=== PATIENT | male | born 1945 | race Caucasian/White ===

== ENCOUNTER 2016-08-14 09:15 | Emergency (ER) | payer MEDICARE, BC ==
[2016-08-14 09:59] LABS: CHLORIDE,CL 103 mmol/L (98-107); SODIUM,NA 137 mmol/L (136-145)
[2016-08-14] MEDS ORDERED: Sodium Chloride 0.9% 1,000 ML IV SCH (10:45)
--- NOTE | 2016-08-14 10:45 | EDM.PDOC ---
ED HPI GENERAL MEDICAL PROBLEM - General Chief Complaint: General Stated Complaint: Dizziness Time Seen by Provider: 08/14/16 09:55 Source of Information: Reports: Patient History Limitations: Reports: No Limitations - History of Present Illness INITIAL COMMENTS - FREE TEXT/NARRATIVE: The patient presents to the ER with compliant of lightheadedness and weakness that began at about 8 am this morning. He denies chest pain, shortness of breath , nausea or vomiting, diarrhea, hematochezia, melena, visual changes, facial droop, speech difficulty, and focal weakness or numbness or paresthesias. He denies other symptoms or complaints. - Related Data Allergies Allergy/AdvReac Type Severity Reaction Status Date / Time No Known Allergies Allergy Verified 08/14/16 09:25 Home Meds: Home Meds Acetaminophen [Tylenol Extra Strength] 1,000 mg PO Q4HR PRN 03/06/16 [History] Escitalopram Oxalate [Lexapro] 10 mg PO QAM 03/06/16 [History] Folic Acid 1 mg PO QAM 03/06/16 [History] Lisinopril 10 mg PO QAM 03/06/16 [History] Sildenafil [Viagra] 100 mg PO ASDIRECTED 03/06/16 [History] atorvaSTATin Calcium [Atorvastatin Calcium] 10 mg PO QAM 03/06/16 [History] buPROPion [Wellbutrin SR] 150 mg PO QAM 03/06/16 [History] Cefadroxil 500 mg PO BID 08/14/16 [History] Past Medical History Cardiovascular History: Reports: High Cholesterol, Hypertension Musculoskeletal History: Reports: Back Pain, Chronic Other Musculoskeletal History: Back Surgery 02/03/16 and 02/10/16 Psychiatric History: Reports: Depression - Past Surgical History Musculoskeletal Surgical History: Reports: Other (See Below) Other Musculoskeletal Surgeries/Procedures:: Multiple back surgeries for lower lumbar fusion and subsequent surgeries for infection. Currently on cefprodroxil for 1 year s/p postop "staph" infection. States it was not MRSA. Social & Family History - Tobacco Use Smoking Status *Q: Current Every Day Smoker Years of Tobacco use: 25 Packs/Tins Daily: 1 Used Tobacco, but Quit: Yes Month Tobacco Last Used: February Second Hand Smoke Exposure: No - Caffeine Use Caffeine Use: Reports: Coffee - Alcohol Use Days Per Week of Alcohol Use: 7 Number of Drinks Per Day: 2 Total Drinks Per Week: 14 Date of Last Drink: 08/13/16 - Recreational Drug Use Recreational Drug Use: No ED ROS GENERAL - Review of Systems Review Of Systems: ROS reveals no pertinent complaints other than HPI. ED EXAM, GENERAL - Physical Exam Exam: See Below Exam Limited By: No Limitations General Appearance: Alert, WD/WN, No Apparent Distress Eye Exam: Bilateral Eye: EOMI, Normal Fundi, Normal Inspection, PERRL Ears: Normal External Exam, Normal Canal, Hearing Grossly Normal, Normal TMs Ear Exam: Bilateral Ear: Auricle Normal, Canal Normal, TM normal Nose: Normal Inspection, Normal Mucosa, No Blood Throat/Mouth: Normal Inspection, Normal Lips, Normal Teeth, Normal Gums, Normal Oropharynx, Normal Voice, No Airway Compromise Head: Atraumatic, Normocephalic Neck: Normal Inspection, Supple, Non-Tender, Full Range of Motion. No: Lymphadenopathy (L), Lymphadenopathy (R), Tender Lateral, Tender Midline Respiratory/Chest: No Respiratory Distress, Lungs Clear, Normal Breath Sounds, No Accessory Muscle Use, Chest Non-Tender Cardiovascular: Normal Peripheral Pulses, Regular Rate, Rhythm, No Edema, No Gallop, No Murmur, No Rub Peripheral Pulses: 2+: Radial (L), Radial (R), Dorsalis Pedis (L), Dorsalis Pedis (R) GI/Abdominal: Normal Bowel Sounds, Soft, Non-Tender, No Organomegaly, No Distention Back Exam: Normal Inspection, Full Range of Motion. No: CVA Tenderness (L), CVA Tenderness (R), Paraspinal Tenderness, Vertebral Tenderness Extremities: Normal Inspection, Normal Range of Motion, Non-Tender, No Pedal Edema, Normal Capillary Refill Neurological: Alert, Oriented, CN II-XII Intact, Normal Cognition, Normal Gait, Normal Reflexes, No Motor/Sensory Deficits Psychiatric: Normal Affect, Normal Mood Skin Exam: Warm, Dry, Intact, Normal Color, No Rash Lymphatic: No Adenopathy Course - Vital Signs Last Recorded V/S: Last Vital Signs Temp 36.8 C 08/14/16 09:34 Pulse 65 08/14/16 14:38 Resp 18 08/14/16 14:38 BP 146/78 H 08/14/16 14:38 Pulse Ox 99 08/14/16 14:38 Orthostatic Blood Pressure [ 146/78 Standing] Orthostatic Blood Pressure [ 140/83 Sitting] Orthostatic Blood Pressure [ 145/70 Supine] - Orders/Labs/Meds Orders: Active Orders 24 hr Category Date Time Status EKG Documentation Completion [RC] ASDIRECTED Care 08/14/16 09:23 Active EKG Documentation Completion [RC] STAT Care 08/14/16 09:23 Active Chest 1V Frontal [CR] Stat Exams 08/14/16 09:23 Taken Sodium Chloride 0.9% [Normal Saline] 1,000 ml Med 08/14/16 10:45 Active IV ASDIRECTED Medication Orders Sodium Chloride (Normal Saline) 1,000 mls @ 150 mls/hr IV ASDIRECTED ABHIJIT Last Admin: 08/14/16 10:47 Dose: 150 mls/hr Labs: Laboratory Tests 08/14/16 08/14/16 08/14/16 Range/Units 09:22 09:22 10:15 WBC 5.8 (4.0-10.2) K/uL RBC 5.05 (4.33-5.41) M/uL Hgb 14.4 D (13.1-16.8) g/dL Hct 43.3 (39.0-49.0) % MCV 85.7 D (84.0-98.0) fL MCH 28.5 (28.2-33.3) pg MCHC 33.3 (31.7-36.0) g/dL RDW 16.7 H (11.2-14.1) % Plt Count 215 (150-350) K/uL Neut % (Auto) 56.2 (45.0-80.0) % Lymph % (Auto) 27.6 (10.0-50.0) % [place] % (Auto) 10.2 (2.0-14.0) % Eos % (Auto) 5.5 H (0.0-5.0) % Baso % (Auto) 0.5 (0.0-2.0) % Neut # (Auto) 3.25 (1.40-7.00) K/uL Lymph # (Auto) 1.60 (0.50-3.50) K/uL [place] # (Auto) 0.59 (0.00-1.00) K/uL Eos # (Auto) 0.32 (0.00-0.50) K/uL Baso # (Auto) 0.03 (0.00-0.20) K/uL Sodium 137 (136-145) mmol/L Potassium 4.2 (3.5-5.1) mmol/L Chloride 103 (98-107) mmol/L Carbon Dioxide 28.4 (21.0-32.0) mmol/L BUN 18 (7-18) mg/dL Creatinine 0.99 (0.51-1.17) mg/dL Est Cr Clr Drug Dosing 71.84 mL/min Estimated GFR (MDRD) > 60 mL/min Glucose 133 H (74-106) mg/dL Calcium 9.0 (8.5-10.1) mg/dL Total Bilirubin 0.3 (0.2-1.0) mg/dL AST 22 (15-37) U/L ALT 33 (12-78) U/L Alkaline Phosphatase 86 (46-116) IU/L Creatine Kinase 472 H (26-308) U/L Creatine Kinase Index 0.6 (0.0-2.5) % CK-MB (CK-2) 2.70 (0.00-3.60) ng/mL Troponin I 0.000 (0.000-0.056) ng/mL C-Reactive Protein 0.1 (<=0.9) mg/dL Dej-N-Gmakmmvtazi Pept 14 (0-125) pg/mL Total Protein 7.6 (6.4-8.2) g/dL Albumin 3.7 (3.4-5.0) g/dL Specimen Type Urinvoid Urine Color Yellow Urine Appearance Clear Urine pH 6.5 (5.0-9.0) Ur Specific [place] 1.020 (1.005-1.030) Urine Protein Negative (NEGATIVE) mg/dL Urine Glucose (UA) Negative (NEGATIVE) mg/dL Urine Ketones Negative (NEGATIVE) mg/dL Urine Occult Blood Small H (NEGATIVE) Urine Nitrite Negative (NEGATIVE) Urine Bilirubin Negative (NEGATIVE) Urine Urobilinogen 0.2 (0.2-1.0) E.U./dL Ur Leukocyte Esterase Negative (NEGATIVE) Urine RBC 5-10 H /HPF Urine WBC 0-5 /HPF Ur Epithelial Cells Rare /LPF Urine Bacteria Rare (NONE TO FEW) /HPF 08/14/16 Range/Units 13:30 WBC (4.0-10.2) K/uL RBC (4.33-5.41) M/uL Hgb (13.1-16.8) g/dL Hct (39.0-49.0) % MCV (84.0-98.0) fL MCH (28.2-33.3) pg MCHC (31.7-36.0) g/dL RDW (11.2-14.1) % Plt Count (150-350) K/uL Neut % (Auto) (45.0-80.0) % Lymph % (Auto) (10.0-50.0) % [place] % (Auto) (2.0-14.0) % Eos % (Auto) (0.0-5.0) % Baso % (Auto) (0.0-2.0) % Neut # (Auto) (1.40-7.00) K/uL Lymph # (Auto) (0.50-3.50) K/uL [place] # (Auto) (0.00-1.00) K/uL Eos # (Auto) (0.00-0.50) K/uL Baso # (Auto) (0.00-0.20) K/uL Sodium (136-145) mmol/L Potassium (3.5-5.1) mmol/L Chloride (98-107) mmol/L Carbon Dioxide (21.0-32.0) mmol/L BUN (7-18) mg/dL Creatinine (0.51-1.17) mg/dL Est Cr Clr Drug Dosing mL/min Estimated GFR (MDRD) mL/min Glucose (74-106) mg/dL Calcium (8.5-10.1) mg/dL Total Bilirubin (0.2-1.0) mg/dL AST (15-37) U/L ALT (12-78) U/L Alkaline Phosphatase (46-116) IU/L Creatine Kinase 421 H (26-308) U/L Creatine Kinase Index 0.5 (0.0-2.5) % CK-MB (CK-2) 2.20 (0.00-3.60) ng/mL Troponin I 0.000 (0.000-0.056) ng/mL C-Reactive Protein (<=0.9) mg/dL Zdv-M-Bllyabmenti Pept (0-125) pg/mL Total Protein (6.4-8.2) g/dL Albumin (3.4-5.0) g/dL Specimen Type Urine Color Urine Appearance Urine pH (5.0-9.0) Ur Specific [place] (1.005-1.030) Urine Protein (NEGATIVE) mg/dL Urine Glucose (UA) (NEGATIVE) mg/dL Urine Ketones (NEGATIVE) mg/dL Urine Occult Blood (NEGATIVE) Urine Nitrite (NEGATIVE) Urine Bilirubin (NEGATIVE) Urine Urobilinogen (0.2-1.0) E.U./dL Ur Leukocyte Esterase (NEGATIVE) Urine RBC /HPF Urine WBC /HPF Ur Epithelial Cells /LPF Urine Bacteria (NONE TO FEW) /HPF Meds: Medications Generic Name Dose Route Start Last Admin Trade Name Freq PRN Reason Stop Dose Admin Sodium Chloride 1,000 mls @ 150 mls/hr 08/14/16 10:45 08/14/16 10:47 Normal Saline IV 150 mls/hr ASDIRECTED ABHIJIT Administration Departure - Departure Time of Disposition: 15:00 Disposition: Home, Self-Care 01 Clinical Impression: Lightheadedness, Episode of generalized weakness - Discharge Information Instructions: Near-Syncope Referrals: PCP,Unknown [Primary Care Provider] - Forms: ED Department Discharge Additional Instructions: 1. Ruled out acute NM and stroke. EKG showed NSR with Q waves in III and J point elevation in V1. No ST elevation. No previous EKG for comparison. 2. NS at 150 mL/hour in ER. 3. Patient notes improvement in lightheadedness and generalized weakness and able to ambulate in hallways without assistance with no complaints. 4. Recommended to begin low dose 81 mg enteric coated aspirin regimen daily for cardiac and stroke prophylaxis. 5. Follow up with PCP this week, recommend cardiac risk stratification and 24 hour Holter monitor. Recommend fasting lipid panel and consideration for cardiac stress testing. 6. Return to ER with refractory chest pain, shortness of breath, visual changes , facial droop, speech difficulty, focal weakness or numbness or tingling, mental status changes, or other emergent concerns. - My Orders Last 24 Hours: My Active Orders 08/14/16 09:23 EKG Documentation Completion [RC] ASDIRECTED EKG Documentation Completion [RC] STAT Chest 1V Frontal [CR] Stat 08/14/16 10:45 Sodium Chloride 0.9% [Normal Saline] 1,000 ml IV ASDIRECTED - Assessment/Plan Last 24 Hours: My Active Orders 08/14/16 09:23 EKG Documentation Completion [RC] ASDIRECTED EKG Documentation Completion [RC] STAT Chest 1V Frontal [CR] Stat 08/14/16 10:45 Sodium Chloride 0.9% [Normal Saline] 1,000 ml IV ASDIRECTED Assessment:: Episodic lightheadedness and generalized weakness. Plan: 1. Ruled out acute NM and stroke. EKG showed NSR with Q waves in III and J point elevation in V1. No ST elevation. No previous EKG for comparison. 2. NS at 150 mL/hour in ER. 3. Patient notes improvement in lightheadedness and generalized weakness and able to ambulate in hallways without assistance with no complaints. 4. Recommended to begin low dose 81 mg enteric coated aspirin regimen daily for cardiac and stroke prophylaxis. 5. Follow up with PCP this week, recommend cardiac risk stratification and 24 hour Holter monitor. Recommend fasting lipid panel and consideration for cardiac stress testing. 6. Return to ER with refractory chest pain, shortness of breath, visual changes , facial droop, speech difficulty, focal weakness or numbness or tingling, mental status changes, or other emergent concerns.
[2016-08-14 14:38] VITALS: BP 146/78
== END 2016-08-14 15:10 | disposition home or self-care (01) ==
LOC: LL.ED 09:15
DX: R53.1 Weakness (principal); R42 Dizziness and giddiness; E78.00 Pure hypercholesterolemia, unspecified; I10 Essential (primary) hypertension; F32.9 Major depressive disorder, single episode, unspecified; F17.210 Nicotine dependence, cigarettes, uncomplicated
CPT/HCPCS: 36415; 71010; 80053; 81001; 82550; 82553; 83880; 84484; 85025; 86140; 93005; 96360; 96361; 99284; J7030; 99282

== ENCOUNTER 2017-01-27 07:00 | Day surgery (SDC) | payer MEDICARE, BC ==
[~2017-01-27 07:00] MED LIST: Lactated Ringers 1,000 ML IV SCH; Sodium Chloride 0.9% 10 ML Syringe FLUSH PRN
[2017-01-27] MEDS ORDERED: fentaNYL 100 MCG/2 ML SDV ONE ×2 (07:43→08:10)
[2017-01-27] MEDS ORDERED: Propofol 200 MG/20 ML SDV ONE ×3 (07:44→08:10)
[2017-01-27] MEDS ORDERED: Midazolam 1 MG/ML 2 ML SDV ONE ×2 (07:44→08:10)
--- NOTE | 2017-01-27 09:19 | PCM.PN ---
- General Info Date of Service: 01/27/17 - Review of Systems Systems Review Comment:: 72-year-old male referred for colonoscopy. It has been several years since his last exam. He is medically stable to proceed today with no recent significant changes in his health status. I discussed the proposed colonoscopy with the patient. He agrees to proceed accepting risks. - Patient Data Vitals - Most Recent: Last Vital Signs Temp 97.7 F 01/27/17 09:13 Pulse 52 L 01/27/17 09:13 Resp 18 01/27/17 09:13 BP 110/60 01/27/17 09:13 Pulse Ox 92 L 01/27/17 09:13 Weight - Most Recent: 109.588 kg I&O - Last 24 Hours: Intake & Output 01/26/17 01/27/17 01/27/17 22:59 06:59 14:59 Intake Total 1999 Balance 1999 Med Orders - Current: Current Medications Lactated Ringer's (Ringers, Lactated) 1,000 mls @ 70 mls/hr IV ASDIRECTED ABHIJIT Last Admin: 01/27/17 07:52 Dose: 70 mls/hr Sodium Chloride (Saline Flush) 10 ml FLUSH ASDIRECTED PRN PRN Reason: Keep Vein Open Discontinued Medications Fentanyl (Sublimaze) Confirm Administered Dose 100 mcg .ROUTE .STK-MED ONE Stop: 01/27/17 07:44 Midazolam HCl (Versed 1 Mg/Ml) Confirm Administered Dose 2 mg .ROUTE .STK-MED ONE Stop: 01/27/17 07:45 Propofol (Diprivan 20 Ml) Confirm Administered Dose 200 mg .ROUTE .STK-MED ONE Stop: 01/27/17 07:45 Propofol (Diprivan 20 Ml) Confirm Administered Dose 200 mg .ROUTE .STK-MED ONE Stop: 01/27/17 07:46 - Problem List Review Problem List Initiated/Reviewed/Updated: Yes - Assessment Assessment:: History of colon polyps - Plan Plan:: Colonoscopy
--- NOTE | 2017-01-27 10:27 | PCM.OPNOTE ---
- General Post-Op/Procedure Note Date of Surgery/Procedure: 01/27/17 Operative Procedure(s): Colonoscopy with polypectomy Findings: Multiple small to medium size colon polyps Moderate-sized external hemorrhoids Pre Op Diagnosis: History of colon polyps Post-Op Diagnosis: Colon polyps. Hemorrhoids Anesthesia Technique: MAC Primary Surgeon: Ray Middleton Pathology: Multiple colon polyps Output, Urine Amount: 0 EBL in mLs: 0 Complications: None Condition: Good Free Text/Narrative:: Intake & Output 01/26/17 01/27/17 01/27/17 22:59 06:59 14:59 Intake Total 1999 Balance 1999
[2017-01-27 10:54] VITALS: BP 113/61
--- NOTE | 2017-01-27 11:44 | OR ---
Date of Procedure: 01/27/2017 PREOPERATIVE DIAGNOSIS: History of colon polyps. POSTOPERATIVE DIAGNOSIS: Colon polyps. OPERATION PERFORMED: Colonoscopy with polypectomy. INDICATIONS FOR SURGERY: This 72-year-old male has a history of colon polyps, and he comes for surveillance colonoscopy. FINDINGS: Multiple colon polyps are noted today. These are sessile to semipedunculated polyps, ranging in size from 7 to 9 mm. All the visualized polyps were removed with a cautery snare. The polyps identified were located in the sigmoid colon, 12 cm from the anal verge; in the rectum, 10 cm from the anal verge; in the cecum; in the transverse colon; and in the descending colon, 50 cm from the anal verge. PROCEDURE IN DETAIL: The patient was taken to the operating room. He was given intravenous sedation, and with him in the left lateral decubitus position, digital rectal exam was performed showing no rectal masses. The Olympus colonoscope was inserted into the rectum. A retroflexed examination of the rectal canal was performed. The scope was then carefully advanced under direct visualization through the entire length of the colon until the cecum is reached. Cecal acquisition is confirmed by noting normal internal cecal anatomy, including the appendiceal orifice and ileocecal valve. After the cecum had been carefully examined, the scope was slowly withdrawn sequentially re-examining the colonic segments. During insertion and withdrawal of the scope, the above- described polyps are identified, and as they are viewed, each are in turn removed with a cautery snare and retrieved into a polyp trap. There was no evidence of any complication from the polypectomy or procedure, and there was no bleeding noted. After the exam had been completed, the scope was removed, and the patient was taken from the operating room in satisfactory condition. ESTIMATED BLOOD LOSS: Zero. COMPLICATIONS: None. PROGNOSIS: Good. JOSY Middleton MD /[id number]
== END 2017-01-27 10:32 | disposition home or self-care (01) ==
LOC: LL.SDS 07:00
PROVIDERS: ATTEND Surgery
DX: Z12.11 Encounter for screening for malignant neoplasm of colon (principal); D12.0 Benign neoplasm of cecum; D12.3 Benign neoplasm of transverse colon; D12.4 Benign neoplasm of descending colon; K63.5 Polyp of colon; K62.1 Rectal polyp; J44.9 Chronic obstructive pulmonary disease, unspecified; I10 Essential (primary) hypertension; E78.00 Pure hypercholesterolemia, unspecified; G47.33 Obstructive sleep apnea (adult) (pediatric); E11.9 Type 2 diabetes mellitus without complications; Z99.89 Dependence on other enabling machines and devices; Z86.010 Personal history of colon polyps; Z88.8 Allergy status to other drugs, medicaments and biological substances; Z91.041 Radiographic dye allergy status; Z90.49 Acquired absence of other specified parts of digestive tract; Z87.891 Personal history of nicotine dependence; Z79.82 Long term (current) use of aspirin; Z79.899 Other long term (current) drug therapy
CPT/HCPCS: 00810; 45385; J2250; J2704; J3010; J7120; 88305

== ENCOUNTER 2018-07-21 21:56 | Emergency (ER) | payer MEDICARE, BC ==
[2018-07-21] MEDS ORDERED: Famotidine 20 MG/2 ML SDV IVPUSH ONE (22:06)
[2018-07-21] MEDS ORDERED: Sodium Chloride 0.9% 10 ML Syringe FLUSH PRN (22:06)
--- NOTE | 2018-07-21 22:06 | EDM.PDOC ---
ED HPI GENERAL MEDICAL PROBLEM - General Chief Complaint: Chest Pain Stated Complaint: chestpain, right side Time Seen by Provider: 07/21/18 21:56 Source of Information: Reports: Patient, Family (), Old Records ([facility] chart/EMR) History Limitations: Reports: No Limitations - History of Present Illness INITIAL COMMENTS - FREE TEXT/NARRATIVE: Patient was brought to the emergency room via private automobile by his for evaluation of 1-04/02 sharp right anterior chest discomfort, which is reproducible and affected by deep inspiration. His symptoms started at about noon today, however he has not taken any medications to this point. He does have a two-month history of refractory nonproductive cough and bronchitis with previous treatment with Cipro in February and Augmentin on 07/06/18. He denies any known exposure to infection. The patient denies any chest pressure, heart flutter, dizziness, orthostasis, orthopnea, diaphoresis, paresthesias, recent decreased exercise tolerance, or any other anginal-type symptoms, however his overall activity level is low. No recent history of abdominal pain, heartburn, nausea, diarrhea, melena, gross hematochezia, or any food intolerance, including fatty foods, etc.. He denies any gross hematuria, colic, or other UTI symptoms. The patient also denies any recent fever, wheezing, dyspnea, etc.. Onset: Today, Gradual Onset Date: 07/21/18 Onset Time: 12:00 Duration: Intermittent Location: Reports: Chest. Denies: Head, Face, Neck, Abdomen, Back, Upper Extremity, Left, Upper Extremity, Right, Radiates to Quality: Reports: Same as Previous Episode, Sharp Severity: Mild Improves with: Reports: Rest Worsens with: Reports: Movement Context: Reports: Other (As above). Denies: Sick Contact, Trauma Associated Symptoms: Reports: Chest Pain, Cough. Denies: Confusion, cough w sputum, Diaphoresis, Fever/Chills, Headaches, Loss of Appetite, Malaise, Nausea/ Vomiting, Shortness of Breath, Syncope, Weakness, Other Treatments LOAN COORDINATOR: Reports: Other (see below) (None) Right Chest Pain Score (Numeric/FACES): 2 - Related Data Allergies Allergy/AdvReac Type Severity Reaction Status Date / Time diatrizoate meglumine Allergy Cannot Verified 07/21/18 21:58 Remember diatrizoate sodium Allergy Cannot Verified 07/21/18 21:58 Remember Iodinated Contrast- Oral and Allergy Cannot Verified 07/21/18 21:58 IV Dye Remember Home Meds: Home Meds Escitalopram Oxalate [Lexapro] 20 mg PO QAM 03/06/16 [History] Folic Acid 1 mg PO QAM 03/06/16 [History] Lisinopril 10 mg PO QAM 03/06/16 [History] Sildenafil [Viagra] 100 mg PO ASDIRECTED PRN 03/06/16 [History] atorvaSTATin Calcium [Atorvastatin Calcium] 10 mg PO QAM 03/06/16 [History] buPROPion [Wellbutrin SR] 150 mg PO BEDTIME 03/06/16 [History] Aspirin [Halfprin] 81 mg PO DAILY 01/26/17 [History] Cholecalciferol (Vitamin D3) [Vitamin D3] 5,000 unit PO DAILY 01/27/17 [History] metFORMIN [Glucophage] 850 mg PO DAILY 07/21/18 [History] Past Medical History HEENT History: Reports: Cataract, Impaired Vision, Other (See Below). Denies: Allergic Rhinitis, Glaucoma, Hard of Hearing, Macular Degeneration, Otitis Media , Retinal Detachment Other HEENT History: The patient wears glasses Cardiovascular History: Reports: Blood Clots/VTE/DVT, High Cholesterol, Hypertension, Other (See Below). Denies: Afib, Aneurysm, Arrhythmia, CAD, Cardiomyopathy, Heart Failure, Heart Murmur, AL, PVD, Syncope Other Cardiovascular History: PE as below. Respiratory History: Reports: Bronchitis, Recurrent, COPD, Intubation, Previous , PE, Sleep Apnea, Other (See Below). Denies: Asthma, Pneumonia, Recurrent, Pneumothorax, Pulmonary Fibrosis, TB Other Respiratory History: Patient is not completely compliant with his CPAP. PE in 1981 secondary to pelvic fracture. Gastrointestinal History: Reports: Cholelithiasis, Chronic Constipation, Colon Polyp, Diverticulosis, Other (See Below). Denies: Celiac Disease, Chronic Diarrhea, Fecal Incontinence, Gastritis, GERD, GI Bleed, Hepatitis, Hiatal Hernia, Inflammatory Bowel Disease, Irritable Bowel Syndrome, Jaundice, Pancreatitis, PUD Other Gastrointestinal History: History of tubular adenomas at the cecum, transverse colon, and 50 cm with additional hyperplastic colonic polyps at 10 cm and 12 cm excised by colonoscopy in 2017 as below. Colitis. LFT elevation secondary to fatty liver. Benign hepatic hemangioma on 02/22/07. Genitourinary History: Reports: BPH, Prostate Disorder, Other (See Below). Denies: Acute Renal Failure, Chronic Renal Insuffiency, Renal Calculus, STD, UTI , Recurrent Other Genitourinary History: Erectile dysfunction and hypogonadsim. Musculoskeletal History: Reports: Arthritis, Back Pain, Chronic, Muscular Dystrophy, Osteoarthritis, Other (See Below). Denies: Amputation, Gout, Neck Pain, Chronic, RA, SLE Other Musculoskeletal History: Nonspecific myopathy/CK elevation. History of pelvic fracture with secondary PE as above in 1981. Neurological History: Reports: Neuropathy, Peripheral. Denies: Cerebral Aneurysms, Concussion, CVA, Head Trauma, MS, Neuropathy, Diabetic, Parkinson's, Seizure, TIA, Vertigo Psychiatric History: Reports: Anxiety, Depression. Denies: Abuse, Victim of, ADD, ADHD, Addiction, Psych Hospitalization(s), PTSD, Suicide Attempt, Suicidal Ideation Endocrine/Metabolic History: Reports: Diabetes, Type II, Obesity/BMI 30+. Denies: Diabetes Mellitus, Type 3c, Hypothyroidism, IDDM Hematologic History: Reports: None. Denies: Anemia, Blood Transfusion(s), Iron Deficiency Immunologic History: Reports: None. Denies: AIDS, HIV, SLE Oncologic (Cancer) History: Reports: Prostate, Squamous Cell Carcinoma, Other ( See Below). Denies: Basal Cell Carcinoma, Colon, Hodgkin's Lymphoma, Leukemia, Lymphoma, Malignant Melanoma, Non-Hodgkin's Lymphoma Other Oncologic History: Prostrate cancer currently in watchful waiting. 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 Dermatologic History: Reports: Other (See Below). Denies: Eczema, Psoriasis - Infectious Disease History Infectious Disease History: Reports: Chicken Pox, Measles, Shingles (Right lower thoracic on 12/23/03). Denies: C-Difficile, Meningitis, MRSA, Mumps, Pertussis (Whooping Cough), Rheumatic Fever, Rubella, Scarlet Fever, TB, VRE - Past Surgical History Head Surgeries/Procedures: Reports: None HEENT Surgical History: Reports: Adenoidectomy, Cataract Surgery, Oral Surgery, Tonsillectomy, Other (See Below). Denies: Eye Surgery, Laser Surgery, LASIK, Myringotomy w Tube(s), Naso-Sinus Surgery Other HEENT Surgeries/Procedures: Bilateral cataract surgery in about 2004. Tonsillectomy and adenoidectomy at age 5. [place] teeth extraction at age 44. Cardiovascular Surgical History: Reports: None. Denies: Varicose Respiratory Surgical History: Reports: None. Denies: Thoracentesis GI Surgical History: Reports: Cholecystectomy, Colonoscopy, Polypectomy, Other ( See Below). Denies: Appendectomy, EGD, Hernia, Abdominal, Hernia, Inguinal, Hernia Repair/Other Other GI Surgeries/Procedures: Laparoscopic cholecystectomy on 03/09/07. Colonoscopy on 01/29/17 with multiple polypectomies as above. 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 Additional colonoscopy on 12/09/03. Other Female Surgeries/Procedures: prostate biopsy Male Surgical History: Reports: Prostate Biopsy, Other (See Below). Denies: Circumcision, Vasectomy Other Male Surgeries/Procedures: Prostate biopsies 4 with last biopsy in about 2014. Endocrine Surgical History: Reports: None. Denies: Thyroid Biopsy Neurological Surgical History: Reports: C-Spine, Discectomy, Laminectomy, Lumbar Spine, Spinal Fusion, Other (See Below). Denies: Thoracic Spine Other Neurological Surgeries/Procedures: Lumbar spine fusion and decompression in February 2016 with postoperative complications including of seroma and Staphylococcus infections 3 not MRSA. L4-5 and L5-S1 decompression on . C3-4 and C4-5 anterior discectomy with fusion on 05/03/03. Musculoskeletal Surgical History: Reports: Arthroscopic Procedure, Other (See Below). Denies: Carpal Tunnel, Ganglion Cyst, Joint Replacement, ORIF Other Musculoskeletal Surgeries/Procedures:: Right rotator cuff repair and decompression on 06/12/03 Oncologic Surgical History: Reports: Other (See Below) Other Oncologic Surgeries/Procedures: Inguinal lymph node biopsy in about 2014 for benign disease Dermatological Surgical History: Reports: None - Past Imaging History Past Imaging History: Reports: CAT Scan (CT of the brain on 03/22/09 and 11/22/93) , HIDA Scan (02/24/07positive.), MRI (Lumbar spine on 10/25/06.), PFT (11/30/05 and 11/11/04), Sleep Study (06/23/04 and 4/9/96), Other (See Below) (EMG and nerve conduction studies on 07/24/02. Cystoscopy on 05/01/03 and 04/02/98. IVP on 04/23/03.) Social & Family History - Family History Cardiac: Reports: CAD, Hypertension, AL, Other (See Below) Other Cardiac Family History: Mother with AL in her 60s. Sister and brother with hypertension. GI: Reports: Cholelithiasis, Other (See Below) Other GI Family History: Sister with hepatic failure secondary to cholelithiasis in her 50s with previous liver transplant at age 50. Neurological: Reports: CVA, Other (See Below) Other Neurological Family History: Mother with fatal CVA in her early 60s. Maternal uncle with fatal CVA in his 70s. Sister with Down's syndrome. Hematologic: Reports: Other (See Below) Other Hematologic Family History: Sister with polycythemia vera in her 50s. - Tobacco Use Smoking Status *Q: Former Smoker Tobacco Use Within Last Twelve Months: No Years of Tobacco use: 6 Packs/Tins Daily: 1 Packs/Tins Daily Comment: Smoked between ages 14 and 40 with maximum use of 1.5 packs per day. Occasional pipe use. Used Tobacco, but Quit: Yes Smoking Cessation Information Provided To Patient: No Second Hand Smoke Exposure: No Second Hand Smoke Education Provided: No - Caffeine Use Caffeine Use: Reports: Coffee (One cup per day), Soda (5 cans per day). Denies : Energy Drinks, Tea - Alcohol Use Alcohol Use History: Yes Days Per Week of Alcohol Use: 7 Number of Drinks Per Day: 4 Number of Drinks Per Day Comment: Usually beer. No previous DWIs, problems with alcohol abuse, etc. 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 ED EXAM, GENERAL - Physical Exam Exam: See Below Exam Limited By: No Limitations General Appearance: Alert, WD/WN, No Apparent Distress Eye Exam: Bilateral Eye: EOMI, Normal Inspection (No nystagmus. Patient wearing glasses.), PERRL Ears: Normal External Exam, Normal Canal, Hearing Grossly Normal, Normal TMs Nose: Normal Inspection, Normal Mucosa, No Blood Throat/Mouth: Normal Inspection, Normal Lips, Normal Teeth, Normal Gums, Normal Oropharynx, Normal Voice, No Airway Compromise. No: Dysphagia, Perioral Cyanosis Head: Atraumatic, Normocephalic. No: Facial Swelling, Facial Tenderness, Sinus Tenderness Neck: Normal Inspection, Supple, Non-Tender, Full Range of Motion. No: Lymphadenopathy (L), Lymphadenopathy (R), Thyromegaly Respiratory/Chest: No Respiratory Distress, Lungs Clear, Normal Breath Sounds, No Accessory Muscle Use. No: Chest Non-Tender (Her palpation pain of the mid lateral right chest wall with no ecchymosis, crepitation, deformity, etc.), Pleural Rub, Retractions Cardiovascular: Normal Peripheral Pulses, Regular Rate, Rhythm, No Edema, No Gallop, No JVD, No Murmur, No Rub. No: Gallop/S3, Gallop/S4, Friction Rub Peripheral Pulses: 2+: Radial (L), Radial (R) GI/Abdominal: Normal Bowel Sounds, Soft, Non-Tender, No Organomegaly, No Distention, No Abnormal Bruit, No Mass, Other (Obese). No: Guarding (Male) Exam: Deferred Rectal (Males) Exam: Deferred Back Exam: Normal Inspection, Full Range of Motion. No: CVA Tenderness (L), CVA Tenderness (R), Muscle Spasm Extremities: Normal Inspection, Normal Range of Motion, Non-Tender, No Pedal Edema, Normal Capillary Refill. No: Debbie's Sign Neurological: Alert, Oriented, CN II-XII Intact, Normal Cognition, Normal Gait, No Motor/Sensory Deficits Psychiatric: Anxious (Mild), Depressed Mood (Mild) Skin Exam: Warm, Dry, Intact, Normal Color, No Rash. No: Diaphoretic, Wound/ Incision Lymphatic: No Adenopathy EKG INTERPRETATION EKG Date: 07/21/18 Time: 22:02 Rhythm: NSR Rate (Beats/Min): 68 [place]: Normal (Cardiac axis) P-Wave: Enlarged (Diffuse biphasic P waves with poor R-wave progression in the anterior leads) QRS: Normal (0.09 seconds) ST-T: Normal QT: Normal [place]/PQ Interval: 0.17 seconds Comparison: NA - No Prior EKG (No recent EKG for comparison) EKG Interpretation Comments: 1. No acute ischemic changes 2. Left Atrial enlargement Course - Vital Signs Last Recorded V/S: Last Vital Signs Temp 36.9 C 07/21/18 21:59 Pulse 68 07/21/18 22:45 Resp 15 07/21/18 22:45 BP 131/61 07/21/18 23:00 Pulse Ox 96 07/21/18 22:45 Vital Signs - 24 hr 07/21/18 07/21/18 07/21/18 21:59 22:30 22:45 Temperature [ 36.9 C Oral] Pulse, 67 66 68 Peripheral [ Left Pulse Oximetry] Respiratory 16 17 15 Rate Blood Pressure 140/54 L 140/67 131/67 [Right Upper Arm] O2 Sat by Pulse 95 96 96 Oximetry 07/21/18 23:00 Temperature [ Oral] Pulse, Peripheral [ Left Pulse Oximetry] Respiratory Rate Blood Pressure 131/61 [Right Upper Arm] O2 Sat by Pulse Oximetry - Orders/Labs/Meds Orders: Active Orders 24 hr Category Date Time Status Cardiac Monitoring [RC] . DIRECTED Care 07/21/18 22:06 Active EKG Documentation Completion [RC] ASDIRECTED Care 07/21/18 22:06 Active Oxygen Therapy, ED [RC] PRN Care 07/21/18 22:06 Active Peripheral IV Care [RC] . DIRECTED Care 07/21/18 22:06 Active Pulse Oximetry [RC] CONTINUOUS Care 07/21/18 22:06 Active Up With Assistance [RC] PFP Care 07/21/18 22:06 Active Vital Signs [RC] PFP Care 07/21/18 22:06 Active Nothing per Oral Now Diet [DIET] Diet 07/21/18 Breakfast Active Chest 1V Frontal [CR] Stat Exams 07/21/18 22:06 Taken Sodium Chloride 0.9% [Saline Flush] Med 07/21/18 22:06 Active 10 ml FLUSH ASDIRECTED PRN Obtain Past Medical Record [OM.PC] Urgent Oth 07/21/18 22:06 Active Peripheral IV Insertion Adult [OM.PC] Stat Oth 07/21/18 22:06 Ordered Resuscitation Status Stat Resus Stat 07/21/18 22:06 Ordered Medication Orders Sodium Chloride (Saline Flush) 10 ml FLUSH ASDIRECTED PRN PRN Reason: Keep Vein Open Last Admin: 07/21/18 22:34 Dose: 10 ml Labs: Laboratory Tests 07/21/18 07/21/18 07/21/18 Range/Units 22:15 22:15 22:15 WBC 8.1 (4.0-10.2) K/uL RBC 4.72 (4.33-5.41) M/uL Hgb 14.3 (13.1-16.8) g/dL Hct 42.9 (39.0-49.0) % MCV 90.9 D (84.0-98.0) fL MCH 30.3 (28.2-33.3) pg MCHC 33.3 (31.7-36.0) g/dL RDW 13.8 (11.2-14.1) % Plt Count 222 (150-350) K/uL Neut % (Auto) 59.4 (45.0-80.0) % Lymph % (Auto) 27.6 (10.0-50.0) % [place] % (Auto) 9.4 (2.0-14.0) % Eos % (Auto) 3.4 (0.0-5.0) % Baso % (Auto) 0.2 (0.0-2.0) % Neut # (Auto) 4.78 (1.40-7.00) K/uL Lymph # (Auto) 2.22 (0.50-3.50) K/uL [place] # (Auto) 0.76 (0.00-1.00) K/uL Eos # (Auto) 0.27 (0.00-0.50) K/uL Baso # (Auto) 0.02 (0.00-0.20) K/uL PT 11.3 (9.5-12.0) SEC INR 1.1 APTT 25.9 (21.0-31.3) SEC D-Dimer, Quantitative 153 (0-400) ng/mL Sodium (136-145) mmol/L Potassium (3.5-5.1) mmol/L Chloride (98-107) mmol/L Carbon Dioxide (21.0-32.0) mmol/L BUN (7-18) mg/dL Creatinine (0.51-1.17) mg/dL Est Cr Clr Drug Dosing mL/min Estimated GFR (MDRD) mL/min Glucose (74-106) mg/dL Lactic Acid (0.4-2.0) mmol/L Uric Acid (2.6-7.2) mg/dL Calcium (8.5-10.1) mg/dL Magnesium (1.8-2.4) mg/dL Total Bilirubin (0.2-1.0) mg/dL AST (15-37) U/L ALT (12-78) U/L Alkaline Phosphatase (46-116) IU/L Creatine Kinase (26-308) U/L Creatine Kinase Index (0.0-2.5) % CK-MB (CK-2) (0.00-3.60) ng/mL Troponin I (0.000-0.056) ng/mL NT-Pro-B Natriuret Pep (0-125) pg/mL Total Protein (6.4-8.2) g/dL Albumin (3.4-5.0) g/dL TSH, Ultra Sensitive (0.358-3.740) mIU/mL 07/21/18 07/21/18 Range/Units 22:15 22:15 WBC (4.0-10.2) K/uL RBC (4.33-5.41) M/uL Hgb (13.1-16.8) g/dL Hct (39.0-49.0) % MCV (84.0-98.0) fL MCH (28.2-33.3) pg MCHC (31.7-36.0) g/dL RDW (11.2-14.1) % Plt Count (150-350) K/uL Neut % (Auto) (45.0-80.0) % Lymph % (Auto) (10.0-50.0) % [place] % (Auto) (2.0-14.0) % Eos % (Auto) (0.0-5.0) % Baso % (Auto) (0.0-2.0) % Neut # (Auto) (1.40-7.00) K/uL Lymph # (Auto) (0.50-3.50) K/uL [place] # (Auto) (0.00-1.00) K/uL Eos # (Auto) (0.00-0.50) K/uL Baso # (Auto) (0.00-0.20) K/uL PT (9.5-12.0) SEC INR APTT (21.0-31.3) SEC D-Dimer, Quantitative (0-400) ng/mL Sodium 138 (136-145) mmol/L Potassium 4.2 (3.5-5.1) mmol/L Chloride 102 (98-107) mmol/L Carbon Dioxide 26.0 (21.0-32.0) mmol/L BUN 14 (7-18) mg/dL Creatinine 0.98 (0.51-1.17) mg/dL Est Cr Clr Drug Dosing 70.43 mL/min Estimated GFR (MDRD) > 60 mL/min Glucose 184 H (74-106) mg/dL Lactic Acid 2.8 H (0.4-2.0) mmol/L Uric Acid 7.4 H (2.6-7.2) mg/dL Calcium 9.3 (8.5-10.1) mg/dL Magnesium 1.8 (1.8-2.4) mg/dL Total Bilirubin 0.3 (0.2-1.0) mg/dL AST 25 (15-37) U/L ALT 31 (12-78) U/L Alkaline Phosphatase 66 (46-116) IU/L Creatine Kinase 684 H (26-308) U/L Creatine Kinase Index 0.4 (0.0-2.5) % CK-MB (CK-2) 3.00 (0.00-3.60) ng/mL Troponin I 0.000 (0.000-0.056) ng/mL NT-Pro-B Natriuret Pep 41 (0-125) pg/mL Total Protein 7.3 (6.4-8.2) g/dL Albumin 3.8 (3.4-5.0) g/dL TSH, Ultra Sensitive 3.209 (0.358-3.740) mIU/mL Meds: Medications Generic Name Dose Route Start Last Admin Trade Name Freq PRN Reason Stop Dose Admin Sodium Chloride 10 ml 07/21/18 22:06 07/21/18 22:34 Saline Flush FLUSH 10 ml ASDIRECTED PRN Administration Keep Vein Open Discontinued Medications Generic Name Dose Route Start Last Admin Trade Name Leatha PRN Reason Stop Dose Admin Famotidine 40 mg 07/21/18 22:06 07/21/18 22:33 Pepcid IVPUSH 07/21/18 22:07 40 mg ONETIME ONE Administration Methylprednisolone Acetate 80 mg 07/21/18 22:48 07/21/18 22:59 Depo-Medrol IM 07/21/18 22:49 80 mg ONETIME ONE Administration - Radiology Interpretation Free Text/Narrative:: Egg Candler shows normal sinus rhythm with heart rate in the 60s to 70s with no ectopy or arrhythmia. Chest x-ray, portable, shows moderate COPD changes with mild prominence of the proximal aortic arch, however no cardiomegaly, CHF, pulmonary infiltrates, pneumothorax, etc. Departure - Departure Time of Disposition: 23:10 Disposition: Home, Self-Care 01 Condition: Good Clinical Impression: Chest wall pain, Elevated CK, Hyperuricemia, Mixed anxiety depressive disorder , Lactic acid blood increased COPD (chronic obstructive pulmonary disease) Qualifiers: COPD type: emphysema Emphysema type: panlobular Qualified Code(s): J43.1 - Panlobular emphysema Hypertension Qualifiers: Hypertension type: essential hypertension Qualified Code(s): I10 - Essential ( primary) hypertension Hyperlipidemia Qualifiers: Hyperlipidemia type: unspecified Qualified Code(s): E78.5 - Hyperlipidemia, unspecified - Discharge Information *PRESCRIPTION DRUG MONITORING PROGRAM REVIEWED*: Not Applicable *COPY OF PRESCRIPTION DRUG MONITORING REPORT IN PATIENT ALLAN: Not Applicable Instructions: Chronic Obstructive Pulmonary Disease, [id number], Chest Wall Pain, [id number], Methylprednisolone Solution for Injection, Famotidine injection Referrals: Liam Woodson PA [Primary Care Provider] - Forms: ED Department Discharge Additional Instructions: 1. Followup with your regular provider in 10-14 days as directed. Bring these discharge instructions with you to that visit. 2. Tylenol 650 mg by mouth every 4 hours and/or OTC ibuprofen 2-3 tabs by mouth every 6 hours with food as directed./needed. You may stagger these medications for 48-72 hours only, which essentially means that you are receiving a pain medication about every 2 hours. 3. BenGay or equivalent, heating pad, and/or ice packs as directed. 4. Discuss with your regular provider at follow-up your recent decreased exercise tolerance, bilateral leg pain with ambulation, etc. with recommended possible dobutamine Cardiolite stress test and ELZA screen. You would likely also benefit from PFTs and possible nebulizer and/or inhaler therapy. 5. Strict Compliance with your CPAP as discussed 6. Immediately after this visit verify that your cellular telephone's voicemail has been activated and is empty. Also verify that your home telephone 's answering machine is operating properly and has space to receive messages. Note that it is sometimes necessary for us to be able to contact you at a later date to discuss your medical care. 7. Please remember that we are ALWAYS here for you and want to answer any questions you may have. Feel free to call the hospital any time and we call you back RANDY. 8. Consider reinitiation of a water-soluble form of coenzyme Q10 at a high dose with close observation of your CK levels. - Problem List & Annotations (1) Chest wall pain SNOMED Code(s): 680409448 Code(s): R07.89 - OTHER CHEST PAIN Status: Acute Priority: High Current Visit: Yes Onset Date: 07/21/18 Annotation/Comment:: Reproducible chest wall pain by exam and by the patient. No true chest pain or anginal type symptoms. Patient did not wish IM Toradol. IM Depo-Medrol was given, however. Symptomatic relief as per discharge instructions. Close follow-up by his primary provider. (2) Elevated CK SNOMED Code(s): 483460599 Code(s): R74.8 - ABNORMAL LEVELS OF OTHER SERUM ENZYMES Status: Chronic Priority: Medium Current Visit: Yes Annotation/Comment:: IM Depo-Medrol given. Patient counseled on reinitiation of Coenzyme Q10 (3) Hyperuricemia SNOMED Code(s): 71288844 Code(s): E79.0 - HYPERURICEMIA W/O SIGNS OF INFLAM ARTHRIT AND TOPHACEOUS DIS Status: Acute Priority: Medium Current Visit: Yes Annotation/Comment :: Newly diagnosed. Observe for now. (4) COPD (chronic obstructive pulmonary disease) SNOMED Code(s): 67692146 Code(s): J44.9 - CHRONIC OBSTRUCTIVE PULMONARY DISEASE, UNSPECIFIED Status : Chronic Priority: Medium Current Visit: Yes Annotation/Comment:: He would likely benefit from PFTs, inhalers, etc. as per discharge instructions. IM Depo-Medrol given. Qualifiers: COPD type: emphysema Emphysema type: panlobular Qualified Code(s): J43.1 - Panlobular emphysema (5) Mixed anxiety depressive disorder SNOMED Code(s): 263753464 Code(s): F41.8 - OTHER SPECIFIED ANXIETY DISORDERS Status: Chronic Priority: Medium Current Visit: Yes Annotation/Comment:: Stable by history (6) Hypertension SNOMED Code(s): 63463124 Code(s): I10 - ESSENTIAL (PRIMARY) HYPERTENSION Status: Chronic Priority : Medium Current Visit: Yes Annotation/Comment:: Stable in the emergency room. Qualifiers: Hypertension type: essential hypertension Qualified Code(s): I10 - Essential (primary) hypertension (7) Hyperlipidemia SNOMED Code(s): 34117925 Code(s): E78.5 - HYPERLIPIDEMIA, UNSPECIFIED Status: Chronic Priority: Medium Current Visit: Yes Annotation/Comment:: Regular provider apparently recently increased his therapy. Coenzyme Q10 recommended as above. Weight loss in moderation also advisable. Qualifiers: Hyperlipidemia type: unspecified Qualified Code(s): E78.5 - Hyperlipidemia , unspecified (8) Lactic acid blood increased SNOMED Code(s): 4959774 Code(s): R79.89 - OTHER SPECIFIED ABNORMAL FINDINGS OF BLOOD CHEMISTRY Status: Acute Priority: Medium Current Visit: Yes Onset Date: 07/21/18 Annotation/Comment:: No evidence of sepsis, fever, leukocytosis, etc. Observe for now. - Problem List Review Problem List Initiated/Reviewed/Updated: Yes - My Orders Last 24 Hours: My Active Orders 07/21/18 22:06 Cardiac Monitoring [RC] . DIRECTED EKG Documentation Completion [RC] ASDIRECTED Oxygen Therapy, ED [RC] PRN Peripheral IV Care [RC] . DIRECTED Pulse Oximetry [RC] CONTINUOUS Up With Assistance [RC] PFP Vital Signs [RC] PFP Chest 1V Frontal [CR] Stat Sodium Chloride 0.9% [Saline Flush] 10 ml FLUSH ASDIRECTED PRN Obtain Past Medical Record [OM.PC] Urgent Peripheral IV Insertion Adult [OM.PC] Stat Resuscitation Status Stat 07/21/18 Breakfast Nothing per Oral Now Diet [DIET] - Assessment/Plan Last 24 Hours: My Active Orders 07/21/18 22:06 Cardiac Monitoring [RC] . DIRECTED EKG Documentation Completion [RC] ASDIRECTED Oxygen Therapy, ED [RC] PRN Peripheral IV Care [RC] . DIRECTED Pulse Oximetry [RC] CONTINUOUS Up With Assistance [RC] PFP Vital Signs [RC] PFP Chest 1V Frontal [CR] Stat Sodium Chloride 0.9% [Saline Flush] 10 ml FLUSH ASDIRECTED PRN Obtain Past Medical Record [OM.PC] Urgent Peripheral IV Insertion Adult [OM.PC] Stat Resuscitation Status Stat 07/21/18 Breakfast Nothing per Oral Now Diet [DIET] Assessment:: As above Plan: As above. Extensive precautions were given to the patient and his , who are in agreement with the treatment plan. See Patient Instructions for further treatment and plan.
[2018-07-21 22:43] LABS: CHLORIDE,CL 102 mmol/L (98-107); SODIUM,NA 138 mmol/L (136-145)
[2018-07-21] MEDS ORDERED: methylPREDNISolone Acetate 80 MG/ML SDV IM ONE (22:48)
[2018-07-21 23:14] VITALS: BP 131/61
== END 2018-07-21 23:10 | disposition home or self-care (01) ==
LOC: LL.ED 21:56
DX: R07.89 Other chest pain (principal); F41.8 Other specified anxiety disorders; J43.1 Panlobular emphysema; I10 Essential (primary) hypertension; E78.5 Hyperlipidemia, unspecified; R74.8 Abnormal levels of other serum enzymes; E79.0 Hyperuricemia without signs of inflammatory arthritis and tophaceous disease; E78.00 Pure hypercholesterolemia, unspecified; E11.9 Type 2 diabetes mellitus without complications; Z87.891 Personal history of nicotine dependence; Z79.82 Long term (current) use of aspirin; Z79.84 Long term (current) use of oral hypoglycemic drugs; Z88.8 Allergy status to other drugs, medicaments and biological substances; Z91.041 Radiographic dye allergy status
CPT/HCPCS: 36415; 71045; 80053; 82550; 82553; 83605; 83735; 83880; 84443; 84484; 84550; 85025; 85379; 85610; 85730; 93005; 93010; 96372; 96374; 99284; 99285-25; J1040; J3490

== ENCOUNTER 2022-03-11 09:20 | Day surgery (SDC) | payer MEDICARE, BC ==
[~2022-03-11 09:20] MED LIST changes: +Midazolam 1 MG/ML 2 ML SDV ONE; +Propofol 200 MG/20 ML SDV ONE
[2022-03-11 16:25] VITALS: BP 137/67; PULSE 64
== END 2022-03-11 12:32 | disposition home or self-care (01) ==
LOC: LL.SDS 09:20
PROVIDERS: ATTEND Surgery
DX: Z12.11 Encounter for screening for malignant neoplasm of colon (principal); I10 Essential (primary) hypertension; E78.00 Pure hypercholesterolemia, unspecified; J44.9 Chronic obstructive pulmonary disease, unspecified; G47.33 Obstructive sleep apnea (adult) (pediatric); M19.90 Unspecified osteoarthritis, unspecified site; E11.9 Type 2 diabetes mellitus without complications; E29.1 Testicular hypofunction; Z86.010 Personal history of colon polyps; Z98.890 Other specified postprocedural states; Z90.49 Acquired absence of other specified parts of digestive tract; Z79.899 Other long term (current) drug therapy; Z79.82 Long term (current) use of aspirin; Z91.041 Radiographic dye allergy status; Z87.891 Personal history of nicotine dependence; Z88.8 Allergy status to other drugs, medicaments and biological substances
CPT/HCPCS: G0105; J2250; J2704; J7120; 00812

== ENCOUNTER 2024-05-31 11:19 | Emergency (ER) | payer MEDICARE, BC ==
[2024-05-31 11:26] VITALS: BP 171/76; PULSE 72
[2024-05-31] MEDS ORDERED: Naloxone 0.4 MG/ML SDV IVPUSH PRN ×2 (12:02→12:29)
[2024-05-31 12:28] LABS: BASOPHILS ABSOLUTE AUTO 0.01 K/uL (0.00-0.20); BASOPHILS PERCENT AUTO 0.1 % (0.0-2.0); EOSINOPHILS ABSOLUTE AUTO 0.11 K/uL (0.00-0.50); EOSINOPHILS PERCENT AUTO 1.6 % (0.0-5.0); HEMATOCRIT 42.3 % (39.0-49.0); IMMATURE GRAN ABSOLUTE AUTO 0.01 10^3/uL (0.00-0.04); IMMATURE GRAN PERCENT AUTO 0.1 % (0.0-0.4); LYMPHOCYTES ABSOLUTE AUTO 0.99 K/uL (0.50-3.50); LYMPHOCYTES PERCENT AUTO 14.4 % (10.0-50.0); MEAN CORPUSCULAR HEMOGLOBIN 29.5 pg (28.2-33.3); MEAN CORPUSCULAR HGB CONC 33.1 g/dL (31.7-36.0); MEAN CORPUSCULAR VOLUME 89.2 fL (84.0-98.0); MONOCYTES ABSOLUTE AUTO 0.61 K/uL (0.00-1.00); MONOCYTES PERCENT AUTO 8.9 % (2.0-14.0); NEUTROPHILS ABSOLUTE AUTO 5.15 K/uL (1.40-7.00); NEUTROPHILS PERCENT AUTO 74.9 % (45.0-80.0); PLATELET COUNT,PLT 206 K/uL (150-350); RED BLOOD CELL COUNT 4.74 M/uL (4.33-5.41); RED CELL DISTRIBUTION WIDTH 12.7 % (11.2-14.1); WHITE BLOOD CELL COUNT,WBC 6.9 K/uL (4.0-10.2)
[2024-05-31] MEDS: Ketorolac 30 MG/ML SDV IM ONE (12:31)
[2024-05-31] MEDS: Ondansetron 4 MG Tab.DIS PO ONE (12:31)
[2024-05-31] MEDS: HYDROmorphone 0.5 MG/0.5 ML Syringe IM ONE (12:31)
[2024-05-31] MEDS: Ketorolac 30 MG/ML SDV IVPUSH ONE (12:33)
[2024-05-31] MEDS: Ondansetron 4 MG/2 ML SDV IVPUSH ONE (12:33)
[2024-05-31] MEDS: HYDROmorphone 0.5 MG/0.5 ML Syringe IVPUSH ONE ×2 (12:36→12:49)
[2024-05-31] MEDS: methylPREDNISolone Sodium Succinate 125 MG/2 ML SDV IM ONE (12:40)
[2024-05-31] MEDS: methylPREDNISolone Sodium Succinate 125 MG/2 ML SDV IVPUSH ONE (12:41)
[2024-05-31 12:58] LABS: ALANINE AMINOTRANSFERASE,ALT 18 U/L (12-78); ALBUMIN 3.8 g/dL (3.4-5.0); ALKALINE PHOSPHATASE 72 IU/L (46-116); ANION GAP 4.7 meq/L (7-15); ASPARTATE AMNIOTRANSFERASE,AST 16 U/L (15-37); BILIRUBIN TOTAL 0.3 mg/dL (0.2-1.0); BLOOD UREA NITROGEN,BUN 14 mg/dL (7-18); CALCIUM 9.8 mg/dL (8.5-10.1); CARBON DIOXIDE,CO2 30.3 mmol/L (21.0-32.0); CHLORIDE,CL 104 mmol/L (98-107); CREATININE 1.22 mg/dL (0.51-1.17); GLUCOSE RANDOM 160 mg/dL (70-99); POTASSIUM,K 3.8 mmol/L (3.5-5.1); PROTEIN TOTAL,TP 7.3 g/dL (6.4-8.2); SODIUM,NA 139 mmol/L (136-145)
[2024-05-31 13:08] LABS: ESTIMATED GFR 60 mL/min (>=60)
== END 2024-05-31 13:30 | disposition home or self-care (01) ==
LOC: LL.ED 11:19
DX: M54.16 Radiculopathy, lumbar region (principal); I10 Essential (primary) hypertension; E78.00 Pure hypercholesterolemia, unspecified; J44.9 Chronic obstructive pulmonary disease, unspecified; E11.9 Type 2 diabetes mellitus without complications; Z88.8 Allergy status to other drugs, medicaments and biological substances; Z79.899 Other long term (current) drug therapy; Z91.041 Radiographic dye allergy status; Z79.82 Long term (current) use of aspirin; Z79.84 Long term (current) use of oral hypoglycemic drugs
CPT/HCPCS: 36415; 72100; 80053; 85025; 96374; 96375; 99283-25; J1885; J2405; J2919